=== PATIENT | female | born 1995 | race Caucasian/White ===

== ENCOUNTER → 2016-09-17 | Outpatient (CLI) | payer MEDICAID ==
[~2016-09-17] MED LIST: ACYCLOVIR 400M400 MG PO; BENADRYL 25MG C25 MG PO; BENADRYL25 M1 PO; CIPRO 250MG TA250 MG PO; DARVOCET-N6 EACH/PAK PO; EMETROL PO; IMPLANON68 MG; MEDROL 4MG. DOSE4 MG PO; PREDNISONE 10MG10 MG PO; PREDNISONE 20MG20 MG PO; PREDNISONE50 MG PO; PROVERA10 MG OR; VYVANSE20 MG PO
[2016-09-17 09:18] LABS: HEMOGLOBIN 12.6 g/dL (12.2-16.2); LYMPH # 2.6 K/mm3 (0.7-4.5)
[2016-09-17 10:19] LABS: BUN 13 mg/dL (7-18)
[2016-09-17 10:20] LABS: GFR (ESTIMATED) 90 ML/MIN (59-)
== END ==
LOC: LAB 08:53
PROVIDERS: Nurse Practitioner Obstetrics & Gynecology
DX: Z30.09 Encounter for other general counseling and advice on contraception (principal); Z01.818 Encounter for other preprocedural examination

== ENCOUNTER → 2016-11-27 | Outpatient (CLI) | payer MEDICAID ==
[~2016-11-27] MED LIST changes: +BACTRIM DS 8001 TA1 PO; +BACTROBAN2% TP; +DICLOFENAC SODI75 M2 PO; +KEFLEX 500MG.500 MG PO; +SEPTRA DS 800 M1 TAB PO; +TIZANIDINE HCL 44 MG NG
== END ==
LOC: LAB 17:25
DX: N76.4 Abscess of vulva (principal)

== ENCOUNTER 2017-02-26 03:01 | Emergency (ER) | payer MEDICAID ==
[~2017-02-26] VITALS: Ht 154.9 cm; Wt 91.6 kg
[2017-02-26 04:00] LABS: HEMOGLOBIN 13.2 g/dL (12.2-16.2); LYMPH # 1.9 K/mm3 (0.7-4.5); LYMPH % 28.8 % (10-50.0)
--- NOTE | 2017-02-26 05:39 | Emergency Room Report ---
History of Present Illness Time Seen by MD Ortiz Presenting Problem in Triage Pt arrived:Walked Presenting Problem:c/o vaginal bleeding x 1 month. Was seen at [facility] in [place] x 3 last week and they want to treat with control but she refuses. 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 N Clinical Suspician of Infection? N Mental Status: 1 - Regular (Normal Baseline) Sepsis Risk:Low Sepsis Risk Have you (or family members/close friends) recently traveled outside the [place]? N If Yes, where/when: Have you had exposure to infectious disease within the past month? N TB? Other? Specify: Source patient, RN notes reviewed, family, old records Exam Limitations no limitations Comment pt with bleeding vag over the last month - pt with no fever or rash and has seen pcp but declined treatment - no syncope Cardiac Chest Pain Chest pain indicative of cardiac No Timing/Duration this evening Severity moderate ALLERGIES Coded Allergies: No Known Allergies (11/27/16) History Medical History General CAD? No Angina: No [place]: No Hypertension? No Hyperlipidemia? No CHF? No DVT? No PE? No COPD? No Asthma? No Anemia? No GERD? No Gastric ulcers? No GI Bleed? No Hernia? No Thyroid Problems? No Hypothyroidism? No CVA? No Seizures? No Diabetes? No Renal Insuffiency? No End Stage Renal Disease? No UTI? No Stones? No BPH? No GB Disease: No Nephritic Syndrome? No Asplenia? No Hepatitis? No Sickle Cell Disease? No Arthritis? No Migraines? No Cataracts? No Glaucoma? No MRSA? No HIV? No TB? No Anxiety? No Depression? No Cancer? No More? No Immunization Hx DT/Tetanus 1-4 YRS Surgical Hx Previous Surgery?Y Tonsils TUBES REMOVED [employer] Hx LMP Now Social History Smoking Hx Smoker: Current Every Day Smoker Tobacco: Yes Type Cigarettes Packs/day < 1 Pack Alcohol Alcohol: No Drugs none Review of Systems All Other Systems Reviewed and Negative Constitutional denies fever Eyes denies drainage ENT denies: ear discharge, epistaxis, throat pain. Respiratory denies cough, denies shortness of breath, denies wheezing Cardiovascular denies chest pain, denies syncope Gastrointestinal denies abdominal pain, denies diarrhea, denies vomiting Genitourinary see HPI, abnormal vaginal bleeding. denies: dysuria, frequency, hesitancy, hematuria. Musculoskeletal denies back pain, denies joint pain, denies joint swelling, denies neck pain Skin denies rash Psychiatric/Neurological denies headache, denies seizure Physical Exam Vital Signs Vital Signs Date Time Temp Pulse Resp B/P Pulse O2 O2 Flow FiO2 Ox Delivery Rate 02/26 0307 98.7 82 20 112/ 96 - WBC >12,000 or <4,000 or 10% bands? 2 or more SIRS Criteria Met? B/P:112/ MAP:88 Creatinine >2.0? UA output<0.5ml/kg/hr for 2 hrs? Platelet count >100,000? Lactate >2.0mmol/1? INR >1.2 or PTT > than 60 sec? Evidence of Organ Dysfunction? Provider documented clinical suspician of infection? N Sepsis Criteria Count: 1 Sepsis Risk: Low Sepsis Risk General Appearance no apparent distress Eye Exam - bilateral eye PERRL, bilateral eye EOMI Ear, Nose, Throat normal ENT inspection Neck supple Respiratory Status No: respiratory distress. Cardiovascular regular rate/rhythm Peripheral Pulses Pulses normal Yes Pelvic deferred Neurologic alert, surgeon/president II-XII nml as tested, no motor/sensory deficits Reflexes Reflexes normal No Mental status normal mood/affect Skin intact Medical Decision Making LABS/Meds/Orders Pt receiving controlled substance in ED? No Results/Orders Laboratory Tests 02/26/17 0350: WBC 6.6, RBC 4.09 L, Hgb 13.2, Hct 38.7, MCV 94.8, RDW 12.5, Plt Count 233, MPV 7.8, Gran % 65.1, Gran # 4.3, Lymphocytes % 28.8, Monocytes % 4.2, Eosinophils % 1.4, Basophils % 0.5, Lymphocytes # 1.9, Monocytes # 0.3, Eosinophils # 0.1, Basophils # 0.0, PUBS MCHC 34.0, MCH 32.2 H Orders Procedure Date/time Status URINALYSIS/COMPLETE 02/26 539 Active URINE 02/26 539 Active CBC WITH AUTO DIFF 02/26 315 Complete Departure Departure Time of Disposition 0546 Disposition DC Home or Self Care(routine) Clinical Impression Primary Impression: DUB (dysfunctional uterine bleeding) Condition STABLE Referrals Krzysztof PERALTA,Jamil Reddy Patient Instructions DI for Vaginal Bleeding Additional Instructions use nsaif and call brush painter for follow up - Discharge Counseling Counseled pt/family regarding diagnosis, test results, follow up needs ED Critical Care Critical Care No at 0524
--- NOTE | 2017-02-26 05:39 | Emergency Room Report ---
History of Present Illness Time Seen by MD Ortiz Presenting Problem in Triage Pt arrived:Walked Presenting Problem:c/o vaginal bleeding x 1 month. Was seen at [facility] in [place] x 3 last week and they want to treat with control but she refuses. 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 N Clinical Suspician of Infection? N Mental Status: 1 - Regular (Normal Baseline) Sepsis Risk:Low Sepsis Risk Have you (or family members/close friends) recently traveled outside the [place]? N If Yes, where/when: Have you had exposure to infectious disease within the past month? N TB? Other? Specify: Source patient, RN notes reviewed, family, old records Exam Limitations no limitations Comment pt with bleeding vag over the last month - pt with no fever or rash and has seen pcp but declined treatment - no syncope Cardiac Chest Pain Chest pain indicative of cardiac No Timing/Duration this evening Severity moderate ALLERGIES Coded Allergies: No Known Allergies (11/27/16) History Medical History General CAD? No Angina: No [place]: No Hypertension? No Hyperlipidemia? No CHF? No DVT? No PE? No COPD? No Asthma? No Anemia? No GERD? No Gastric ulcers? No GI Bleed? No Hernia? No Thyroid Problems? No Hypothyroidism? No CVA? No Seizures? No Diabetes? No Renal Insuffiency? No End Stage Renal Disease? No UTI? No Stones? No BPH? No GB Disease: No Nephritic Syndrome? No Asplenia? No Hepatitis? No Sickle Cell Disease? No Arthritis? No Migraines? No Cataracts? No Glaucoma? No MRSA? No HIV? No TB? No Anxiety? No Depression? No Cancer? No More? No Immunization Hx DT/Tetanus 1-4 YRS Surgical Hx Previous Surgery?Y Tonsils TUBES REMOVED [facility] Hx LMP Now Social History Smoking Hx Smoker: Current Every Day Smoker Tobacco: Yes Type Cigarettes Packs/day < 1 Pack Alcohol Alcohol: No Drugs none Review of Systems All Other Systems Reviewed and Negative Constitutional denies fever Eyes denies drainage ENT denies: ear discharge, epistaxis, throat pain. Respiratory denies cough, denies shortness of breath, denies wheezing Cardiovascular denies chest pain, denies syncope Gastrointestinal denies abdominal pain, denies diarrhea, denies vomiting Genitourinary see HPI, abnormal vaginal bleeding. denies: dysuria, frequency, hesitancy, hematuria. Musculoskeletal denies back pain, denies joint pain, denies joint swelling, denies neck pain Skin denies rash Psychiatric/Neurological denies headache, denies seizure Physical Exam Vital Signs Vital Signs Date Time Temp Pulse Resp B/P Pulse O2 O2 Flow FiO2 Ox Delivery Rate 02/26 0307 98.7 82 20 112/ 96 - WBC >12,000 or <4,000 or 10% bands? 2 or more SIRS Criteria Met? B/P:112/ MAP:88 Creatinine >2.0? UA output<0.5ml/kg/hr for 2 hrs? Platelet count >100,000? Lactate >2.0mmol/1? INR >1.2 or PTT > than 60 sec? Evidence of Organ Dysfunction? Provider documented clinical suspician of infection? N Sepsis Criteria Count: 1 Sepsis Risk: Low Sepsis Risk General Appearance no apparent distress Eye Exam - bilateral eye PERRL, bilateral eye EOMI Ear, Nose, Throat normal ENT inspection Neck supple Respiratory Status No: respiratory distress. Cardiovascular regular rate/rhythm Peripheral Pulses Pulses normal Yes Pelvic deferred Neurologic alert, it lead II-XII nml as tested, no motor/sensory deficits Reflexes Reflexes normal No Mental status normal mood/affect Skin intact Medical Decision Making LABS/Meds/Orders Pt receiving controlled substance in ED? No Results/Orders Laboratory Tests 02/26/17 0350: WBC 6.6, RBC 4.09 L, Hgb 13.2, Hct 38.7, MCV 94.8, RDW 12.5, Plt Count 233, MPV 7.8, Gran % 65.1, Gran # 4.3, Lymphocytes % 28.8, Monocytes % 4.2, Eosinophils % 1.4, Basophils % 0.5, Lymphocytes # 1.9, Monocytes # 0.3, Eosinophils # 0.1, Basophils # 0.0, PUBS MCHC 34.0, MCH 32.2 H Orders Procedure Date/time Status URINALYSIS/COMPLETE 02/26 539 Active URINE 02/26 539 Active CBC WITH AUTO DIFF 02/26 315 Complete Departure Departure Time of Disposition 0546 Disposition DC Home or Self Care(routine) Clinical Impression Primary Impression: DUB (dysfunctional uterine bleeding) Condition STABLE Referrals Krzysztof PERALTA,Jamil Reddy Patient Instructions DI for Vaginal Bleeding Additional Instructions use nsaif and call optical glass etcher for follow up - Discharge Counseling Counseled pt/family regarding diagnosis, test results, follow up needs ED Critical Care Critical Care No at 0568
[2017-02-26 06:05] LABS: URINE BILIRUBIN - DIPSTICK NEGATIVE (NEG); URINE BLOOD NEGATIVE (NEG)
[2017-02-26 06:09] VITALS: BP 117/67
[2017-02-26 06:10] LABS: URINE SQUAMOUS CELLS OCC #/hpf (0-5)
== END 2017-02-26 06:09 | disposition home or self-care (01) ==
LOC: ER 03:01
PROVIDERS: Emergency Medicine
DX: N93.8 Other specified abnormal uterine and vaginal bleeding (principal); F17.210 Nicotine dependence, cigarettes, uncomplicated